=== PATIENT | female | born 1985 | race American Indian/Alaskan Native ===

== ENCOUNTER 2017-05-13 11:34 | Emergency (ER) | payer OTHER ==
[2017-05-13 11:58] VITALS: PULSE 78; RESP 18; TEMP 98.5; BMI 40.7
--- NOTE | 2017-05-13 12:22 | ED PDOC ---
Arrival/HPI - General Chief Complaint: GI Problem Time Seen by Provider: 05/13/17 11:48 Historian: Patient - History of Present Illness Narrative History of Present Illness (Text): 05/13/17 12:06 Tao Rushing is a 31 year old female, whose past medical history includes diabetes, right groin lymph node removal, hypertension, who presents to the Emergency department complaining of intermittent right lower abdominal pain that radiates to the lower back for 3 days. Patient notes no bowel movement for 4 days. Patient states she has loss of appetite and cold sweats. When the patient tries to move her bowels she gets nauseous. Patient denies any fever, chills, chest pain, shortness of breath, urinary symptoms, neck pain, headache, dizziness, or any other complaints. Denies bloody urine or stool. Denies vaginal bleeding or discharge. Denies dysuria or frequency. Denies chest pain or shortness of breath. Time/Duration: < week (3 days) Symptom Onset: Sudden Symptom Course: Intermittent Activities at Onset: Light Context: Home Past Medical History - Provider Review Nursing Documentation Reviewed: Yes - Cardiac Hx Cardiac Disorders: Yes Hx Hypertension: Yes - Pulmonary Hx Respiratory Disorders: No - Neurological Hx Neurological Disorder: No - HEENT Hx HEENT Disorder: No - Renal Hx Renal Disorder: No - Endocrine/Metabolic Hx Endocrine Disorders: Yes Hx Diabetes Mellitus Type 1: Yes - Hematological/Oncological Hx Blood Disorders: Yes Hx Hepatitis B: Yes - Integumentary Hx Dermatological Disorder: No - Musculoskeletal/Rheumatological Hx Musculoskeletal Disorders: No - Gastrointestinal Hx Gastrointestinal Disorders: No - Genitourinary/Gynecological Hx Genitourinary Disorders: No - Psychiatric Hx Psychophysiologic Disorder: Yes Hx Depression: Yes Hx Emotional Abuse: No Hx Physical Abuse: No Hx Substance Use: Yes (marijuana) - Past Surgical History Past Surgical History: No Previous - Surgical History Hx Orthopedic Surgery: Yes (right foot 1st digit) Other/Comment: right groin lymphnode removed. - Suicidal Assessment Feels Threatened In Home Enviroment: No Family/Social History - Physician Review Nursing Documentation Reviewed: Yes Family/Social History: Unknown Family HX Smoking Status: Current Some Days Smoker Hx Alcohol Use: Yes (Socially) Hx Substance Use: Yes (marijuana) Substance used: marijuana Allergies/Home Meds Allergies/Adverse Reactions: Allergies shellfish derived Allergy (Verified 05/13/17 11:54) RASH Home Medications: Home Meds Medication Instructions Recorded Confirmed Insulin Detemir [Levemir] 100 unit SC HS 02/07/12 09/30/14 Insulin Human NPH/Reg [HumuLIN 35 units SC [facility] 09/30/14 09/30/14 70/30 (NPH/Reg)] Review of Systems - Review of Systems Constitutional: Fatigue. absent: Weight Change Eyes: absent: Vision Changes ENT: absent: Hearing Changes, Sore Throat Respiratory: absent: SOB, Cough Cardiovascular: absent: Chest Pain Gastrointestinal: Abdominal Pain, Constipation, Nausea. absent: Diarrhea, Appetite Changes, Hematochezia, Hematemesis, Food Intolerance Genitourinary Female: absent: Dysuria, Frequency, Hematuria, Urine Output Changes, Vaginal Bleeding, Vaginal Discharge Musculoskeletal: Back Pain. absent: Neck Pain Skin: absent: Rash, Other Neurological: absent: Dizziness, Focal Weakness Hemo/Lymphatic: absent: Easy Bleeding Psychiatric: absent: Depression Physical Exam - Physical Exam Narrative Physical Exam (Text): 05/13/17 12:22 Head: Atraumatic. Normocephalic. Eyes: PERRL. EOMI. Conjunctivae are not pale. ENT: Mucous membranes are moist and intact. Oropharynx is clear and symmetric. Neck: Supple. Full ROM. No JVD. No lymphadenopathy. Cardiovascular: Regular rate. Regular rhythm. No murmurs, rubs, or gallops. Distal pulses are 2+ and symmetric. Pulmonary/Chest: No evidence of respiratory distress. Clear to auscultation bilaterally. No wheezing, rales or rhonchi. Abdominal: Obese. Mild distention. Focal right upper and lower tenderness to palpitation, mild. No incarcerated masses noted. negative Perry's sign. Back: No CVA tenderness. Extremities: No edema. No cyanosis. No clubbing. Full range of motion in all extremities. No calf tenderness. Skin: Skin is warm and dry. No petechiae. No purpura. There are discrete abdominal skin lesions noted that are not edematous or tender. Neurological: Alert, awake, and oriented to person, place, time, and situation. Normal speech. Motor and sensory intact. Psychiatric: Good eye contact. Normal interaction, affect, and behavior. Vital Signs Reviewed: Yes Vital Signs Temp Pulse Resp BP Pulse Ox 05/13/17 15:20 78 18 151/99 H 98 05/13/17 11:54 98.5 F 78 18 149/95 H 99 Temperature: Afebrile Blood Pressure: Hypertensive Pulse: Regular Respiratory Rate: Normal Appearance: Positive for: Non-Toxic Pain Distress: Mild Mental Status: Positive for: Alert and Oriented X 3 Medical Decision Making ED Course and Treatment: 05/13/17 12:24 Impression: 31 year old female presents to the emergency department complaining of right lower abdominal pain for 3 days. Differential Diagnosis included but are not limited to: Appendicitis vs. Colitis vs. Constipation vs. Hernia Plan: -- VBG shock panel -- CT Abdomen &Pelvis -- Labs -- Amylase -- Lipase -- HGC Urine -- Urinalysis -- Reassess and disposition Progress Notes: Patient's past medical history and visits reviewed. She [place] [facility] [place] she reports that she had pelvic and abdominal ultrasound and labs that "looked fine" to their understanding. She has intermittent right sided pain. She has had iv contrast in past with no adverse effect. CT abdomen/pelvis ordered to eval for colitis/appendicitis, ureterolithiasis. On re-evaluation she has wave of right sided pain. IV fluids, toradol, zofran ordered as patient also nauseous. Labs and ct pending at this time. Patient with complete resolution of pain after toradol. CT findings reviewed with patient AND family in laymen's terms. CT findings suggestive of possible ovarian cyst with rupture, NO appendicitis noted. LIMITATATIONS OF CT SCAN reviewed with patient in laymens terms. As she is PAIN free with no nausea or vomiting, no fever, tolerating po, she has been advised follow-up with circuit breaker assembler to follow-up pelvic findings and exam. She also states that she has dermatology follow-up for her skin lesions, states that she will follow-up with judicial registrar. As pain free, cv stable, afebrile, tolerating po, will discharge with close follow-up with her PMD, circuit breaker assembler, and judicial registrar. Stressed need for close follow-up of symptoms, and limitations of imaging studies, advised re-evaluation with PMD or return for any worsening of symptoms. LFTs unremarkable. Labs and Urinalysis and imaging studies reviewed with patient. Patient reports history of hypertension. States she has blood pressure medication but did not take today. No headache. No neuro findings. No chest pain or sob. Advised taking her BP meds, having BP recheck with her PMD. - Lab Interpretations Lab Results: 05/13/17 12:45 05/13/17 12:45 Lab Results 05/13/17 12:45: Sodium 139, Chloride 101, Potassium 4.1, Carbon Dioxide 28, Anion Gap 15, BUN 14, Creatinine 1.1, Est GFR ( Amer) > 60, Est GFR (Non- Af Amer) 58, Random Glucose 165 H, Calcium 10.2, Total Bilirubin 0.5, AST 21, ALT 46, Alkaline Phosphatase 49, Total Protein 7.4, Albumin 4.0, Globulin 3.4, Albumin/Globulin Ratio 1.2, Amylase 49, Lipase 146 05/13/17 12:45: pO2 25 L, VBG pH 7.35, VBG pCO2 55.0, VBG HCO3 30.4 H, VBG Total CO2 32.1 H, VBG O2 Sat (Calc) 51.5, VBG Base Excess 3.4 H, VBG Potassium 4.1, Sodium 136.0, Chloride 103.0, Glucose 166 H, Lactate 1.3, FiO2 21.0, Venous Blood Potassium 4.1 05/13/17 12:45: Urine Color Yellow, Urine Appearance Clear, Urine pH 6.0, Ur Specific [place] 1.025, Urine Protein 100 H, Urine Glucose (UA) Negative, Urine Ketones Negative, Urine Blood Small H, Urine Nitrate Negative, Urine Bilirubin Negative, Urine Urobilinogen 0.2, Ur Leukocyte Esterase Negative, Urine RBC 0 - 2, Urine WBC 0 - 2, Ur Epithelial Cells 4 - 5, Urine Bacteria Few, Urine HCG, Qual Negative 05/13/17 12:45: PT 11.3, INR 0.98, APTT 26.9 05/13/17 12:45: WBC 10.8, RBC 4.35, Hgb 14.0, Hct 39.7, MCV 91.3, MCH 32.2, MCHC 35.3, RDW 13.0, Plt Count 324, MPV 10.2, Gran % 64.9, Lymph % (Auto) 25.9, [place]ala % (Auto) 7.6 H, Eos % (Auto) 1.1 L, Baso % (Auto) 0.5, Gran # 7.00 H, Lymph # (Auto) 2.8, [place]avala # (Auto) 0.8 H, Eos # (Auto) 0.1, Baso # (Auto) 0.05 - RAD Interpretation Radiology Orders: 05/13/17 12:10 ABD & PELVIS IV CONTRAST ONLY [CT] Stat Price Lister: Radiologist - Medication Orders Current Medication Orders: Discontinued Medications Famotidine (Pepcid) 20 mg IVP STAT STA Stop: 05/13/17 12:45 Last Admin: 05/13/17 12:58 Dose: 20 mg IVP Administration Document 05/13/17 12:58 GMD (Rec: 05/13/17 12:58 GMD [id number]) Charges for Administration # of IVP Administrations 1 Sodium Chloride (Sodium Chloride 0.9%) 500 mls @ 1,000 mls/hr IV .Q30M STA Stop: 05/13/17 13:13 Last Admin: 05/13/17 12:58 Dose: 1,000 mls/hr eMAR Start Stop Document 05/13/17 12:58 GMD (Rec: 05/13/17 12:58 GMD [id number]) Intravenous Solution Start Date 05/13/17 Start Time 12:58 End Date 05/13/17 End time 13:28 Total Infusion Time 30 Ketorolac Tromethamine (Toradol) 30 mg IVP ONCE ONE Stop: 05/13/17 12:45 Last Admin: 05/13/17 12:58 Dose: 30 mg MAR Pain Assessment Document 05/13/17 12:58 GMD (Rec: 05/13/17 12:59 GMD [id number]) Pain Reassessment Is this a pain reassessment? No Presence of Pain Presence of Pain Yes IVP Administration Document 05/13/17 12:58 GMD (Rec: 05/13/17 12:59 GMD [id number]) Charges for Administration # of IVP Administrations 1 Ondansetron HCl (Zofran Inj) 4 mg IVP ONCE ONE Stop: 05/13/17 12:45 Last Admin: 05/13/17 12:58 Dose: 4 mg IVP Administration Document 05/13/17 12:58 GMD (Rec: 05/13/17 12:58 GMD [id number]) Charges for Administration # of IVP Administrations 1 - Scribe Statement The provider has reviewed the documentation as recorded by the Justiceibpreston Teran Philipamee All medical record entries made by the Justiceibpreston were at my direction and personally dictated by me. I have reviewed the chart and agree that the record accurately reflects my personal performance of the history, physical exam, medical decision making, and the department course for this patient. I have also personally directed, reviewed, and agree with the discharge instructions and disposition. Disposition/Present on Arrival - Present on Arrival Any Indicators Present on Arrival: Yes History of DVT/PE: No History of Uncontrolled Diabetes: Yes Urinary Catheter: No History of Decub. Ulcer: No History Surgical Site Infection Following: None - Disposition Have Diagnosis and Disposition been Completed?: Yes Diagnosis: Abdominal pain, Constipation, Ovarian cyst Disposition: HOME/ ROUTINE Disposition Time: 15:43 Patient Plan: Discharge Condition: GOOD Discharge Instructions (ExitCare): Constipation in Adults, Constipation, Adult (DC), Acute Abdomen (Belly Pain), Adult (DC), Ovarian Cyst (DC) Additional Instructions: Please follow-up with a circuit breaker assembler for possible ovarian cyst. Please follow-up with your primary care doctor as well to follow-up symptoms as well as have your blood pressure rechecked. If you have any worsening or return of pain, any change in character, location, or intensity of pain, any chest pain or shortness of breath, any fevers, any vaginal bleeding or discharge, any urinary symptoms, get rechecked. Limitations of CT scans have been reviewed with you, it is important that if you have any worsening, new, or persistent symptoms that you get rechecked. Thank you for allowing the [facility] team to be part of your care today. If you had an X-Ray or CT scan: A Radiologist will review the ED reading if any change in treatment is needed we will contact you. If you had a blood, urine, or wound culture: It will take several days for the results, if any change in treatment is needed we will contact you. Prescriptions: Docusate [Colace] 100 mg PO DAILY #7 cap Naproxen 250 mg PO BID PRN #10 tablet PRN Reason: Pain, Mild (1-3) Forms: [employer] (Kyrgyz)
[2017-05-13] MEDS ORDERED: Sodium Chloride 0.9% 500 ML IV STA (12:44)
[2017-05-13 12:50] LABS: BASO # 0.05 K/mm3 (0.0-2.0); BASO % 0.5 % (0.0-3.0); EOS # 0.1 (0.0-0.7); EOS % 1.1 % (1.5-5.0); GRAN % 64.9 % (50.0-68.0); LYMPH # 2.8 (1.2-3.4); LYMPH % 25.9 % (22.0-35.0); MEAN CELL VOLUME 91.3 fl (80.0-105.0); MEAN CORPUSCULAR HEMOGLOBIN 32.2 pg (25.0-35.0); MEAN CORPUSCULAR HGB CONC 35.3 g/dl (31.0-37.0); MEAN PLATELET VOLUME 10.2 fl (7.0-11.0); MONO # 0.8 (0.1-0.6); MONO % 7.6 % (1.0-6.0); RBC 4.35 10^6/uL (3.5-6.1); URINE APPEARANCE CLEAR (CLEAR); URINE BILIRUBIN NEGATIVE (NEGATIVE); URINE BLOOD SMALL (NEGATIVE); URINE COLOR YELLOW (YELLOW); URINE GLUCOSE (UA) NEGATIVE (NEGATIVE); URINE LEUKOCYTE ESTERASE NEGATIVE Leu/uL (NEGATIVE); URINE PROTEIN 100 mg/dL (<30 mg/dL); URINE UROBILINOGEN 0.2 E.U./dL (<1 E.U./dL); WHITE BLOOD COUNT 10.8 10^3/ul (4.5-11.0)
[2017-05-13 12:52] LABS: VENOUS BLOOD GAS BASE EXCESS 3.4 mmol/L (0.0-2.0); VENOUS BLOOD GAS PO2 25 mm/Hg (30-55); VENOUS BLOOD PH 7.35 (7.32-7.43)
[2017-05-13 12:54] LABS: HCG,QUALITATIVE URINE NEGATIVE (NEGATIVE)
[2017-05-13] MEDS ORDERED: Iohexol 350 MG/100 ML VIAL ONE (12:58)
[2017-05-13 13:02] LABS: INR 0.98 (0.93-1.08); PARTIAL THROMBOPLASTIN TIME 26.9 Seconds (25.1-36.5); PROTHROMBIN TIME 11.3 SECONDS (9.4-12.5)
[2017-05-13 13:14] LABS: ALB/GLOB RATIO 1.2 (1.1-1.8); ALT/SGPT 46 U/L (7-56); AMYLASE 49 U/L (35-125); AST/SGOT 21 U/L (14-36); BLOOD UREA NITROGEN 14 mg/dL (7-21); CALCIUM 10.2 mg/dL (8.4-10.5); GFR AFRICAN-AMERICAN > 60; GFR NON-AFRICAN AMERICAN 58; LIPASE 146 U/L (23-300)
[2017-05-13 13:15] LABS: URINE BACTERIA FEW (NEG); URINE RBC 0 - 2 /hpf (0-2); URINE WBC 0 - 2 /hpf (0-6)
[2017-05-13 15:20] VITALS: BP 151/99; O2SAT 98
--- NOTE | 2017-05-13 15:48 | CT ---
PROCEDURE: CT Abdomen and Pelvis with contrast HISTORY: rlq abdominal pain COMPARISON: None. TECHNIQUE: Contrast dose: 100 cc of Omnipaque 350 Radiation dose: Total exam DLP = 1012 mGy-cm. This CT exam was performed using one or more of the following dose reduction techniques: Automated exposure control, adjustment of the mA and/or kV according to patient size, and/or use of iterative reconstruction technique. FINDINGS: LOWER THORAX: Unremarkable. LIVER: Unremarkable. No gross lesion or ductal dilatation. GALLBLADDER AND BILE DUCTS: Unremarkable. PANCREAS: Unremarkable. No gross lesion or ductal dilatation. SPLEEN: Unremarkable. ADRENALS: Unremarkable. No mass. KIDNEYS AND URETERS: Unremarkable. No hydronephrosis. No solid mass. VASCULATURE: Unremarkable. No aortic aneurysm. BOWEL: Unremarkable. No obstruction. No gross mural thickening. APPENDIX: Normal appendix. PERITONEUM: Unremarkable. No free fluid. No free air. LYMPH NODES: Unremarkable. No enlarged lymph nodes. BLADDER: Unremarkable. REPRODUCTIVE: There is a thick-walled right adnexal cyst measuring 2 cm in size. There is a moderate amount of surrounding free fluid. Findings are consistent with a recent ovarian cyst rupture BONES: No acute fracture. OTHER FINDINGS: None. IMPRESSION: There is a thick-walled right adnexal cyst measuring 2 cm in size. There is a moderate amount of surrounding free fluid. Findings are consistent with a recent ovarian cyst rupture The appendix is normal
== END 2017-05-13 15:58 | disposition home or self-care (01) ==
LOC: ED 11:34
DX: N83.201 Unspecified ovarian cyst, right side (principal); K59.00 Constipation, unspecified; R10.9 Unspecified abdominal pain; I10 Essential (primary) hypertension; F17.210 Nicotine dependence, cigarettes, uncomplicated
CPT/HCPCS: 74177; 80053; 81001; 82150; 82803; 83690; 84703; 85025; 85610; 85730; 96374; 96375; 99284; J1885; J2405; J7040; Q9967

== ENCOUNTER 2018-05-13 10:07 | Emergency (ER) | payer OTHER ==
[2018-05-13 10:08] VITALS: BMI 40.7
[2018-05-13 10:49] VITALS: BP 157/91; PULSE 78; RESP 18; TEMP 98.6; O2SAT 99
--- NOTE | 2018-05-13 11:26 | ED PDOC ---
Arrival/HPI - General Chief Complaint: Trauma Time Seen by Provider: 05/13/18 11:03 Historian: Patient - History of Present Illness Narrative History of Present Illness (Text): 05/13/18 11:17 32 year old F with pmh of diabetes and neuropathy presents complaining of left arm pain w/swelling since yesterday and left foot pain x4days. Patient reports she tripped and fell on her left side yesterday hurting her left arm, but still able to ambulate and get up under her own power. Patient recalls having a cast on her left foot x3 months but recently removing it. Patient mentions taking 1000mg ibuprofen for pain. Patient endorses being complaint with her metformin medication but not with her insulin. She does not check her sugar daily. Patient denies any fevers, chills, headache, dizziness, chest pain, shortness of breath, dyspnea on exertion, cough, abdominal pain, nausea, vomiting, diarrhea, back pain, neck pain, or any other complaint. PCP: Dr. Sierra Time/Duration: 24 hours Symptom Onset: Sudden Symptom Course: Unchanged Activities at Onset: Light Context: Home Past Medical History - Provider Review Nursing Documentation Reviewed: Yes - Infectious Disease Hx of Infectious Diseases: None - Cardiac Hx Cardiac Disorders: Yes Hx Hypertension: Yes - Pulmonary Hx Respiratory Disorders: No - Neurological Hx Neurological Disorder: No - HEENT Hx HEENT Disorder: No - Renal Hx Renal Disorder: No - Endocrine/Metabolic Hx Endocrine Disorders: Yes Hx Diabetes Mellitus Type 1: Yes - Hematological/Oncological Hx Blood Disorders: Yes Hx Hepatitis B: Yes - Integumentary Hx Dermatological Disorder: No - Musculoskeletal/Rheumatological Hx Musculoskeletal Disorders: No - Gastrointestinal Hx Gastrointestinal Disorders: No - Genitourinary/Gynecological Hx Genitourinary Disorders: No - Psychiatric Hx Psychophysiologic Disorder: Yes Hx Depression: Yes Hx Emotional Abuse: No Hx Physical Abuse: No Hx Substance Use: Yes (marijuana) - Past Surgical History Past Surgical History: No Previous - Surgical History Hx Orthopedic Surgery: Yes (right foot 1st digit) Other/Comment: right groin lymphnode removed. - Anesthesia Hx Anesthesia Reactions: No - Suicidal Assessment Feels Threatened In Home Enviroment: No Family/Social History - Physician Review Nursing Documentation Reviewed: Yes Family/Social History: Unknown Family HX Smoking Status: Current Some Days Smoker Hx Alcohol Use: Yes (Socially) Hx Substance Use: Yes (marijuana) Substance used: marijuana Allergies/Home Meds Allergies/Adverse Reactions: Allergies shellfish derived Allergy (Verified 05/13/17 11:54) RASH Home Medications: Home Meds Medication Instructions Recorded Confirmed Insulin Detemir [Levemir] 100 unit SC HS 02/07/12 09/30/14 Insulin Human NPH/Reg [HumuLIN 35 units SC [facility] 09/30/14 09/30/14 70/30 (NPH/Reg)] Review of Systems - Physician Review All systems were reviewed & negative as marked: Yes - Review of Systems Constitutional: Normal. absent: Fevers Eyes: Normal ENT: Normal Respiratory: Normal. absent: SOB, Cough Cardiovascular: Normal. absent: Chest Pain Gastrointestinal: Normal. absent: Diarrhea, Nausea, Vomiting Genitourinary Female: Normal Musculoskeletal: Arthralgias (Left arm and left foot), Joint Swelling (left ankle) Skin: Normal Neurological: Normal Endocrine: Normal Hemo/Lymphatic: Normal Psychiatric: Normal Physical Exam Vital Signs Reviewed: Yes Vital Signs Temp Pulse Resp BP Pulse Ox 05/13/18 10:44 98.6 F 78 18 157/91 H 99 Temperature: Afebrile Blood Pressure: Hypertensive Pulse: Regular Respiratory Rate: Normal Appearance: Positive for: Well-Appearing, Non-Toxic, Comfortable, Other (Obese) Pain Distress: Mild Mental Status: Positive for: Alert and Oriented X 3 - Systems Exam Head: Present: Atraumatic, Normocephalic Pupils: Present: PERRL Extroacular Muscles: Present: EOMI Conjunctiva: Present: Normal Mouth: Present: Moist Mucous Membranes Neck: Present: Normal Range of Motion Respiratory/Chest: Present: Clear to Auscultation, Good Air Exchange. No: Respiratory Distress, Accessory Muscle Use, Wheezes, Rales, Rhonchi Cardiovascular: Present: Regular Rate and Rhythm, Normal S1, S2. No: Murmurs Abdomen: No: Tenderness, Distention, Peritoneal Signs Back: Present: Normal Inspection Upper Extremity: Present: Normal ROM (Able to lift left arm 90 degrees. Pain of upper left arm w/ elevation), NORMAL PULSES, Swelling (left hand), Capillary Refill < 2s, Other (Able to abduct and adduct fingers. Able to make OK sign). No: Cyanosis, Edema Lower Extremity: Present: NORMAL PULSES (Intact posterior tibial dorsalis pedis pulse), Normal ROM (Able to plantar flex & dorsiflex foot). No: Edema Neurological: Present: GCS=15, CN II-XII Intact, Speech Normal Skin: Present: Warm, Dry, Normal Color. No: Rashes Psychiatric: Present: Alert, Oriented x 3, Normal Insight, Normal Concentration Medical Decision Making ED Course and Treatment: 05/13/18 11:28 Impression: 32 year old F presents complaining of left arm pain w/swelling since yesterday and left foot pain x4days Plan: -- Valium -- Toradol -- Left Ankle X Ray -- Left Forearm X Ray -- Left Foot X Ray -- Left Hand X Ray -- Left Humerus X Ray -- Reassess and disposition Prior Visits: Notes and results from previous visits were reviewed. Progress Notes: 05/13/18 13:52 XRs show healing transverse fracture at the base of the 5th metatarsal. Patient updated on results and advised to follow up with podiatry. Call placed to podiatry resident. - RAD Interpretation Narrative RAD Interpretations (Text): 05/13/18 14:16 X-ray of Tibia/Fibula reviewed by radiologist, shows: FINDINGS: BONES: No fracture or destructive lesion. JOINT SPACES: Unremarkable. OTHER FINDINGS: None. IMPRESSION: Unremarkable radiographs of the left tibia and fibula. X-ray of Humerus reviewed by radiologist, shows: FINDINGS: BONES: Normal. No fracture or focal lesion. SOFT TISSUES: Normal. OTHER FINDINGS: None. IMPRESSION: Normal radiographs of left humerus. X-ray of hand reviewed by radiologist, shows: FINDINGS: BONES: Normal. No fracture. JOINTS: Normal. No osteoarthritic changes. SOFT TISSUES: Normal. OTHER FINDINGS: None. IMPRESSION: Normal left hand radiographs. X-ray of Forearm reviewed by radiologist, shows: FINDINGS: BONES: No fracture or destructive lesion. JOINT SPACES: Unremarkable. OTHER FINDINGS: None. IMPRESSION: Unremarkable radiographs of the left forearm. X-ray of foot reviewed by radiologist, shows: FINDINGS: BONES: Healed or healing fracture at the base of the 5th metatarsal. No acute fracture. Mild pes planus deformity. Small plantar calcaneal spur. Incidental os trigonum noted. JOINTS: Normal. SOFT TISSUES: Normal. OTHER FINDINGS: None. IMPRESSION: No acute fracture. Healed or healing transverse fracture at the base of the 5th metatarsal. X-ray of ankle reviewed by radiologist, shows: FINDINGS: BONES: Normal. No fracture. JOINTS: Normal. No osteoarthritis. Ankle mortise maintained. Talar dome intact SOFT TISSUES: Normal. OTHER FINDINGS: None. IMPRESSION: Normal left ankle radiographs. Radiology Orders: 05/13/18 11:13 ANKLE LEFT 3 VIEWS ROUTINE [RAD] Stat FOOT LEFT 3 VIEWS ROUTINE [RAD] Stat FOREARM LEFT [RAD] Stat HAND LEFT 3 VIEWS ROUTINE [RAD] Stat HUMERUS LEFT [RAD] Stat Mussel Opener: Radiologist - Medication Orders Current Medication Orders: Diazepam (Valium) 5 mg PO ONCE ONE; Protocol Stop: 05/13/18 11:14 Ketorolac Tromethamine (Toradol) 60 mg IM STAT STA Stop: 05/13/18 11:14 - Scribe Statement The provider has reviewed the documentation as recorded by the Rafa Shane All medical record entries made by the Scribe were at my direction and personally dictated by me. I have reviewed the chart and agree that the record accurately reflects my personal performance of the history, physical exam, medical decision making, and the department course for this patient. I have also personally directed, reviewed, and agree with the discharge instructions and disposition. Disposition/Present on Arrival - Present on Arrival Any Indicators Present on Arrival: Yes History of DVT/PE: No History of Uncontrolled Diabetes: Yes Urinary Catheter: No History of Decub. Ulcer: No History Surgical Site Infection Following: None - Disposition Have Diagnosis and Disposition been Completed?: Yes Diagnosis: Foot fracture, left Disposition: HOME/ ROUTINE Disposition Time: 13:56 Patient Plan: Discharge Condition: STABLE Discharge Instructions (ExitCare): Foot Fracture (DC) Print Language: CROATIAN Additional Instructions: All medical record entries made by the Scribe were at my direction and personally dictated by me. I have reviewed the chart and agree that the record accurately reflects my personal performance of the history, physical exam, medical decision making, and the department course for this patient. I have also personally directed, reviewed, and agree with the discharge instructions and disposition. Please follow up with podiatry Prescriptions: Naproxen 500 mg PO BID #10 tab Referrals: Emily Sierra MD [Primary Care Provider] - Follow up with primary Ferny Richard DPM [Staff Provider] - Follow up with primary Emily Parker DPM [Staff Provider] - Follow up with primary Forms: [employer] (Indonesian), WORK NOTE
--- NOTE | 2018-05-13 13:39 | RAD ---
Date of service: 05/13/2018 PROCEDURE: Radiographs of the Left Forearm HISTORY: s/p fall COMPARISON: None available. TECHNIQUE: Frontal and lateral views obtained. 2 views obtained. FINDINGS: BONES: No fracture or destructive lesion. JOINT SPACES: Unremarkable. OTHER FINDINGS: None. IMPRESSION: Unremarkable radiographs of the left forearm.
--- NOTE | 2018-05-13 13:40 | RAD ---
PROCEDURE: Left Hand Radiographs. HISTORY: s/p fall COMPARISON: None. TECHNIQUE: 3 views obtained. FINDINGS: BONES: Normal. No fracture. JOINTS: Normal. No osteoarthritic changes. SOFT TISSUES: Normal. OTHER FINDINGS: None. IMPRESSION: Normal left hand radiographs.
--- NOTE | 2018-05-13 13:40 | RAD ---
PROCEDURE: Radiographs of the left humerus. HISTORY: s/p fall COMPARISON: None. TECHNIQUE: 2 views obtained. FINDINGS: BONES: Normal. No fracture or focal lesion. SOFT TISSUES: Normal. OTHER FINDINGS: None. IMPRESSION: Normal radiographs of left humerus.
--- NOTE | 2018-05-13 13:43 | RAD ---
Date of service: 05/13/2018 PROCEDURE: Left Foot Radiographs. HISTORY: s/p fall COMPARISON: None. TECHNIQUE: 3 views obtained. FINDINGS: BONES: Healed or healing fracture at the base of the 5th metatarsal. No acute fracture. Mild pes planus deformity. Small plantar calcaneal spur. Incidental os trigonum noted. JOINTS: Normal. SOFT TISSUES: Normal. OTHER FINDINGS: None. IMPRESSION: No acute fracture. Healed or healing transverse fracture at the base of the 5th metatarsal.
--- NOTE | 2018-05-13 13:43 | RAD ---
Date of service: 05/13/2018 PROCEDURE: Radiographs of the left tibia and fibula. HISTORY: s/p fall COMPARISON: None available. TECHNIQUE: Frontal and lateral views obtained. 2 views obtained. FINDINGS: BONES: No fracture or destructive lesion. JOINT SPACES: Unremarkable. OTHER FINDINGS: None. IMPRESSION: Unremarkable radiographs of the left tibia and fibula.
--- NOTE | 2018-05-13 13:43 | RAD ---
Date of service: 05/13/2018 PROCEDURE: Left Ankle Radiographs. HISTORY: s/p fall COMPARISON: None available. TECHNIQUE: 3 views obtained. FINDINGS: BONES: Normal. No fracture. JOINTS: Normal. No osteoarthritis. Ankle mortise maintained. Talar dome intact SOFT TISSUES: Normal. OTHER FINDINGS: None. IMPRESSION: Normal left ankle radiographs.
== END 2018-05-13 14:16 | disposition home or self-care (01) ==
LOC: ED 10:07
DX: S92.352A Displaced fracture of fifth metatarsal bone, left foot, initial encounter for closed fracture (principal); W01.0XXA Fall on same level from slipping, tripping and stumbling without subsequent striking against object, initial encounter; I10 Essential (primary) hypertension; E11.40 Type 2 diabetes mellitus with diabetic neuropathy, unspecified
CPT/HCPCS: 73060; 73090; 73130; 73590; 73610; 73630; 81025; 96372; 99282; J1885